=== PATIENT | male | born 1995 | race Caucasian/White ===

== ENCOUNTER 2023-09-19 16:50 | Emergency (ER) | payer MEDICAID, SELFPAY ==
[2023-09-19 16:51] VITALS: BP 158/102; PULSE 109; RESP 16; TEMP 36.6; O2SAT 100; BMI 21.7
[2023-09-19 17:10] VITALS: BP 158/111; PULSE 83; RESP 11; O2SAT 100
--- NOTE | 2023-09-19 17:43 | EKG12_ITS ---
Test Reason : CP Blood Pressure : / mmHG Vent. Rate : 083 BPM Atrial Rate : 083 BPM P-R Int : 176 ms QRS Dur : 090 ms QT Int : 342 ms P-R-T Axes : 084 111 057 degrees QTc Int : 401 ms Normal sinus rhythm Left posterior fascicular block Abnormal ECG Confirmed by PRICILLA CHO, YOLANDA ([id number]), technical writer and editor ERIC GERMAN ([id number]) on 09/20/2023 9:11:27 AM Referred By: MARY/MARIELA Confirmed By:YOLANDA PLEITEZ MD
--- NOTE | 2023-09-19 17:45 | RAD_ITS ---
STUDY: X-RAY CHEST REASON FOR EXAM: Male, 28 years old. chest pain TECHNIQUE: Single frontal view of the chest. COMPARISON: None. FINDINGS: Lungs are hyperaerated. The lungs are clear and expanded. There is no demonstrated pleural abnormality. Normal size heart. Normal mediastinum and agueda. Normal visualized pulmonary arteries. Normal visualized aortic arch and descending thoracic aorta. Normal visualized thoracic spine. Normal visualized ribs, clavicles, and shoulders. There is no demonstrated abnormality of the visualized soft tissue structures of the upper abdomen. RAD/Chest 1 View (Portable) IMPRESSION: Possible small airways disease Electronically Signed: Quinton Salazar MD at 18:24 EST ,
--- NOTE | 2023-09-19 17:45 | ED.VIS.CHEST ---
HPI History of Present Illness Chief Complaint: Chest Pain Narrative Narrative: 28-year-old male presenting with left-sided chest pain. He points to the left side of the chest and up into the axilla. 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 He states the pain started 2 days ago on Monday when he was not working. He states the pain comes and goes since then. He describes it as mildly achy and sharp. He states he does not specifically feel short of breath most the time but he is a little anxious over the pain and states he does have some intermittent shortness of breath associated with anxiety. No formally diagnosed history of anxiety. No history of cardiac disease or risk factors that he knows of. Patient has no DVT or PE risk factors. Patient states he went to his insurance card to call a primary care physician to be evaluated and they told him he could not be seen for 3 months and recommended he go to the urgent care. Urgent care referred him to the emergency room. Patient currently pain-free. Denies cough, fever, chills. Denies lightheadedness or dizziness. PFSH PFSH Medical History no medical history Allergy/AdvReac Type Severity Reaction Status Date / Time Penicillins Allergy HIVES Verified 09/19/23 16:53 Social History Smoking Status: Never smoker ROS ROS ED Constitutional Constitutional ED: Denies chills, fever(s) or sweats Eyes Eyes: Denies blurry vision or change in vision ENT ENT ED: Denies ear pain or sore throat Cardiovascular Cardiovascular: Reports chest pain; Denies palpitations or racing heartbeat Respiratory/Chest Respiratory/Chest: Reports dyspnea; Denies cough or sputum Gastrointestinal Gastrointestinal: Denies abdominal pain, constipation, diarrhea, nausea or vomiting Genitourinary Genitourinary ED: Denies dysuria, hematuria or urinary frequency Musculoskeletal Musculoskeletal: Denies arthralgias, myalgias or neck pain Integumentary Denies abscess, Abrasions or rash Neurologic Neurologic: Denies headache(s), paresthesias or weakness Psychiatric Psychiatric: Denies anxiety, depression, suicidal ideation or suicidal thoughts Endocrine Endocrinology: Denies polydipsia or polyuria EXAM Physical Exam Const Vital Signs: 09/19/23 16:51 09/19/23 17:10 09/19/23 17:11 Temperature 98 F Temperature Source Temporal Pulse Rate 109 H 83 Respiratory Rate 16 11 L Respiratory Effort Normal Non-Labored Blood Pressure 158/102 H 158/111 H Blood Pressure Mean 120 126 Pulse Ox 100 100 Oxygen Delivery Method Room Air Room Air 09/19/23 17:44 09/19/23 18:00 09/19/23 19:00 Temperature Temperature Source Pulse Rate 75 86 Respiratory Rate 15 12 Respiratory Effort Blood Pressure 153/95 H 151/102 H Blood Pressure Mean 114 118 Pulse Ox 99 99 Oxygen Delivery Method Room Air Room Air Room Air 09/19/23 19:40 Temperature 97.6 F L Temperature Source Pulse Rate 64 Respiratory Rate 16 Respiratory Effort Blood Pressure 156/76 H Blood Pressure Mean 102 Pulse Ox 99 Oxygen Delivery Method Positive well nourished General Appearance ED: NAD; Negative for pallor HEENT Reports moist mucous membranes normocephalic Eyes PERRL and EOMs intact bilaterally Neck no lymphadenopathy Chest Wall inspection of chest normal and palpation of chest normal Chest Narrative: No reproducible chest tenderness. Equal symmetric breath sounds and chest wall rise. Resp normal respiratory effort and clear to auscultation bilaterally Auscultation: Negative for rales, rhonchi or wheezes Cardio regular rate and regular rhythm GI normal to inspection, nondistended, normoactive bowel sounds Neuro oriented x3 and CN's II-XII intact bilaterally Sensorium / Orientation: awake and alert Psych mental status grossly normal Skin General Skin Exam: Negative for jaundice or pallor Heart Score History: Slightly/Non-Suspicious ECG: Normal Age: </= 45 years Risk Factors: No Risk Factors Troponin: </= Normal Limit Score: 0 MDM MDM MDM Narrative Medical decision making narrative: Patient presented with chest pain it is left-sided. He has no risk factors for cardiac disease but differential still includes ACS, pneumonia, rib strain, muscle strain, pneumonia, PE. I cannot PERC him because of his heart rate of 109. He denies a short complete component. No risk factors for PE. He is low risk. Will obtain a CBC to assess white blood cell count, hemoglobin, platelets. BMP to assess renal function, electrolytes, glucose. High-sensitivity troponin EKG to assess for ischemia/dysrhythmia. Chest x-ray to rule out pneumonia. D-dimer to assess for PE. CBC shows normal white blood cell count, hemoglobin, platelets. BMP shows normal renal function electrolytes. High-sensitivity troponin is 4. EKG on my interpretation shows normal sinus rhythm with a ventricular rate of 83 bpm without sign of ischemic change or ectopy. Chest x-ray my interpretation shows no acute process. Patient counseled on findings. I recommended follow-up with his PCP on an outpatient basis. He should get established. Return precautions were discussed. Impression: 1. Chest pain Lab Data Labs: Laboratory Results - last 24 hr 09/19/23 17:17 WBC 6.7 RBC 6.09 Hgb 17.5 H Hct 50.8 MCV 83.4 MCH 28.7 MCHC 34.4 RDW Std Deviation 36.6 RDW Coeff of Robin 12.2 Plt Count 212 MPV 10.7 Immature Gran % (Auto) 0.500 Neut % (Auto) 67.7 Lymph % (Auto) 23.2 Dickens % (Auto) 6.6 Eos % (Auto) 0.9 Baso % (Auto) 1.1 H Absolute Neuts (auto) 4.5 Absolute Lymphs (auto) 1.54 Nucleated RBC % 0 D-Dimer Quant (PE/DVT) < 0.27 L Sodium 139 Potassium 3.7 Chloride 105 Carbon Dioxide 27.0 Anion Gap 7 BUN 11 Creatinine 1.17 Estim Creat Clear Calc 87.29 Est GFR (MDRD) Af Amer 94 Est GFR (MDRD) Non-Af 78 BUN/Creatinine Ratio 9.4 L Glucose 123 H Calcium 9.5 Troponin I High Sens 4 Radiography Diagnostic Testing: Clinical Impression(s) from Imaging Studies Chest X-Ray 09/19/23 17:45 IMPRESSION: Possible small airways disease Electronically Signed: Quinton Salazar MD at 18:24 EST , Discharge Plan Triage Chief Complaint: Chest Pain ED Provider: Rao Quintero Dx/Rx/DC Orders Instructions: ED Chest Pain, Noncardiac Primary Care Provider: Care Physician,No Primary Referrals: NOT,DEFINED [Non-Staff] - Disposition Disposition: Home, Self Care Discharge Date/Time: 09/19/23 19:41
[2023-09-19 17:54] LABS: Absolute Lymphocyte Count 1.54 X10^3/uL (0.83-4.51); Absolute Neutrophil Count 4.5 X10^3/uL (2.0-7.7); Basophil# 0.07 X10^3/uL; Basophil% 1.1 % (0-1); Eosinophil# 0.06 X10^3/uL; Eosinophils% 0.9 % (0-5); Hematocrit 50.8 % (40-54); Hemoglobin 17.5 g/dL (13.0-16.5); Lymphocyte # 1.54 X10^3/ul (0.83-4.51); Lymphocyte % 23.2 % (19-41); Mean Corp Hgb Conc 34.4 g/dL (32-36); Mean Corpuscular Hgb 28.7 pg (27.0-32.0); Mean Corpuscular Volume 83.4 fL (80-94); Mean Platelet Vol. 10.7 fl (6.2-12.0); Monocyte# 0.44 X10^3/uL; Monocyte% 6.6 % (0-10); NRBC Flagged by Analyzer 0 % (0-5); Neutrophil # 4.51 X10^3/uL (2.7-7.7); Neutrophil % 67.7 % (47-70); Platelet Count 212 K/mm3 (150-450); RBC Distribution Width CV 12.2 % (11.6-14.6); RBC Distribution Width SD 36.6 fl (35.1-43.9); Red Blood Count 6.09 M/mm3 (4.6-6.2); White Blood Count 6.7 K/mm3 (4.4-11.0)
[2023-09-19 18:00] VITALS: BP 153/95; PULSE 75; RESP 15; O2SAT 99
[2023-09-19 18:12] LABS: D-Dimer Quantitative (DVT/PE) < 0.27 FEU/ug/m (0.27-0.49)
[2023-09-19 18:31] LABS: Anion Gap 7 (5-15); BUN 11 mg/dL (7-18); BUN/Creat Ratio 9.4 RATIO (10-20); Calcium,Total 9.5 mg/dL (8.5-10.1); Chloride 105 mmol/L (98-107); Creatinine, Serum 1.17 mg/dL (0.70-1.30); EST Glomerular Filtration Rate 78 mL/min (>60); Est Glom Filt Rate - Afr Amer 94 mL/min (>60); Estimated Creatinine Clearance 87.29 ml/min; Glucose 123 mg/dL (74-106); Potassium 3.7 mmol/L (3.5-5.1); Sodium Level 139 mmol/L (136-145); Troponin-I HS 4 pg/mL (3.0-78.0)
[2023-09-19 19:00] VITALS: BP 151/102; PULSE 86; RESP 12; O2SAT 99
[2023-09-19 19:40] VITALS: BP 156/76; PULSE 64; RESP 16; TEMP 36.4; O2SAT 99
== END 2023-09-19 19:41 | disposition home or self-care (01) ==
PROVIDERS: Emergency Provider Student in an Organized Health Care Education/Training Program; Visit Provider Student in an Organized Health Care Education/Training Program
DX: R07.89 Other chest pain (principal); R06.00 Dyspnea, unspecified
CPT/HCPCS: 71045; 80048; 84484; 85025; 85379; 93005; 99284; A4216